=== PATIENT | female | born 1990 | race Caucasian/White ===

== ENCOUNTER 2021-04-02 20:08 | Emergency (ER) | payer OTHER ==
--- NOTE | 2021-04-02 21:24 | EDM.PDOC ---
ED HPI GENERAL MEDICAL PROBLEM - General Chief Complaint: ENT Problem Stated Complaint: TOOTH ACHE Time Seen by Provider: 04/02/21 21:15 Source of Information: Reports: Patient, Family History Limitations: Reports: No Limitations - History of Present Illness INITIAL COMMENTS - FREE TEXT/NARRATIVE: Dental pain to right lower jaw radiating to chin for 4 days. She has recently moved to the area. She states the pain is severe enough that she cannot sleep. She denies fever chills, nausea, vomiting, change in bowel/bladder, injury to the jaw, or trauma. She has tried use of tylenol ad oragel without any improvement. She denies difficulty eating, drinking or swallowing. Right Lower Jaw Pain Score (Numeric/FACES): 7 - Related Data Allergies Allergy/AdvReac Type Severity Reaction Status Date / Time No Known Allergies Allergy Verified 04/02/21 20:46 Home Meds: Home Meds NK [No Known Home Meds] 04/02/21 [History] Past Medical History Hematologic History: Reports: Other (See Below) Other Hematologic History: can get blood clots easily - Infectious Disease History Infectious Disease History: Reports: Chicken Pox - Past Surgical History HEENT Surgical History: Reports: Oral Surgery Social & Family History - Tobacco Use Tobacco Use Status *Q: Never Tobacco User - Caffeine Use Caffeine Use: Reports: Coffee, Energy Drinks, Soda, Tea - Recreational Drug Use Recreational Drug Use: No ED ROS ENT - Review of Systems Review Of Systems: See Below Constitutional: Reports: No Symptoms HEENT: Reports: Dental Pain (radiating to chin). Denies: Ear Pain, Nose Pain, Sinus Problem, Throat Pain, Throat Swelling, Vertigo Respiratory: Reports: No Symptoms Cardiovascular: Reports: No Symptoms Endocrine: Reports: No Symptoms GI/Abdominal: Reports: No Symptoms : Reports: No Symptoms Musculoskeletal: Reports: No Symptoms Skin: Reports: No Symptoms Neurological: Reports: No Symptoms Psychiatric: Reports: No Symptoms Hematologic/Lymphatic: Reports: No Symptoms Immunologic: Reports: No Symptoms ED EXAM, ENT - Physical Exam Exam: See Below Exam Limited By: No Limitations General Appearance: Alert, WD/WN, Mild Distress Eye Exam: Bilateral Eye: Normal Inspection, PERRL Ears: Normal External Exam, Normal Canal, Hearing Grossly Normal, Normal TMs. No: Auricular Ecchymosis, Mastoid Swelling, Mastoid Tenderness, TM Erythema Nose: Normal Inspection, Normal Mucousa, No Blood Mouth/Throat: Normal Lips, Dental Pain, Dental Tenderness, Gum Swelling, Other (multiple chipped teeth. Multiple dental caries. Firmness and edema to sublingual gland area with tenderness. Edema/erythema to left lower gum. ). No: Drooling, Dry Mucous Membrane, Lip Swelling, Lip Ulcers, Muffled Voice, Peritonsillar Mass, Throat Pain, Throat Swelling, Tongue Swelling, Tonsillar Erythema, Tonsillar Exudates, Trismus, Uvular Deviation, Uvular Edema Head: Atraumatic, Normocephalic Neck: Non-Tender, Full Range of Motion, Lymphadenopathy (R). No: Limited Range of Motion, Lymphadenopathy (L) Respiratory/Chest: No Respiratory Distress, Lungs Clear, Normal Breath Sounds, No Accessory Muscle Use, Chest Non-Tender. No: Crackles, Rales, Rhonchi, Wheezing, Stridor, Retractions, Splinting Cardiovascular: Normal Peripheral Pulses, Regular Rate, Rhythm, No Edema, No Gallop, No Murmur, No Rub Back: Normal Inspection, Full Range of Motion. No: CVA Tenderness (R), CVA Tenderness (L) Extremities: Normal Inspection, Normal Range of Motion, Non-Tender, No Pedal Edema, Normal Capillary Refill Neurological: Alert, Oriented, CN II-XII Intact, Normal Cognition, Normal Gait, Normal Reflexes, No Motor/Sensory Deficits Psychiatric: Normal Affect, Normal Mood Skin: Warm, Dry, Intact, Normal Color, No Rash Course - Vital Signs Last Recorded V/S: Last Vital Signs Temp 36.6 C 04/02/21 20:43 Pulse 69 04/02/21 20:43 Resp 16 04/02/21 20:43 BP 132/85 04/02/21 20:43 Pulse Ox 100 04/02/21 20:43 - Orders/Labs/Meds Labs: Laboratory Tests 04/02/21 04/02/21 Range/Units 22:30 22:30 WBC 9.1 (4.5-11.0) K/uL RBC 5.53 H (3.30-5.50) M/uL Hgb 13.8 (12.0-15.0) g/dL Hct 42.7 (36.0-48.0) % MCV 77 L (80-98) fL MCH 25 L (27-31) pg MCHC 32 (32-36) % Plt Count 340 (150-400) K/uL Neut % (Auto) 72.7 H (36-66) % Lymph % (Auto) 18.5 L (24-44) % [place] % (Auto) 7.7 H (2-6) % Eos % (Auto) 0.7 L (2-4) % Baso % (Auto) 0.4 (0-1) % Sodium 135 L (140-148) mmol/L Potassium 3.7 (3.6-5.2) mmol/L Chloride 99 L (100-108) mmol/L Carbon Dioxide 29 (21-32) mmol/L Anion Gap 10.7 (5.0-14.0) mmol/L BUN 11 (7-18) mg/dL Creatinine 0.7 (0.6-1.0) mg/dL Est Cr Clr Drug Dosing 101.48 mL/min Estimated GFR (MDRD) > 60 (>60) Glucose 113 H (74-106) mg/dL Calcium 9.1 (8.5-10.1) mg/dL No acute findings noted with lab. Patient provided education on dental care, pain and sialadenitis. She will follow up with dental. Meds: Medications Discontinued Medications Generic Name Dose Route Start Last Admin Trade Name Olafq PRN Reason Stop Dose Admin Hydrocodone Bitart/Acetaminophen 1 tab 04/02/21 23:08 04/02/21 23:40 Acetaminophen/Hydrocodone 325-5 Mg Tab PO 04/02/21 23:09 1 tab ONETIME ONE Administration Ketorolac Tromethamine 30 mg 04/02/21 21:29 04/02/21 21:56 Ketorolac 30 Mg/Ml Sdv IM 04/02/21 21:30 30 mg ONETIME ONE Administration Metronidazole 500 mg 04/02/21 22:23 04/02/21 22:34 Metronidazole 250 Mg Tab PO 04/02/21 22:24 500 mg ONETIME ONE Administration Penicillin V Potassium 500 mg 04/02/21 22:16 04/02/21 22:34 Penicillin V Potassium 250 Mg Tab PO 04/02/21 22:17 500 mg ONETIME ONE Administration Departure - Departure Time of Disposition: 23:08 Disposition: Home, Self-Care 01 Condition: Good Clinical Impression: Dental infection, Sialadenitis - Discharge Information Referrals: PCP,None [Primary Care Provider] - Forms: ED Department Discharge Additional Instructions: You have been evaluated and treated for a dental infection. Take penicillin VK and metronidazole as directed for infection. Follow up with dentist per referral on 04/05/2021. Drink plenty of fluids to stay hydrated. May take Ibuprofen 800mg by mouth three times a day for pain. Tylenol as needed and hydrocodone for uncontrolled pain as needed. Return for any worsening, issues or concerns. ENT referral placed for concern of sialadenitis. Sepsis Event Note (ED) - Evaluation Sepsis Screening Result: No Definite Risk - Focused Exam Vital Signs: Vital Signs Temp Pulse Resp BP Pulse Ox 04/02/21 20:43 36.6 C 69 16 132/85 100 - Assessment/Plan Assessment:: Dental infection, Sialadenitis Plan: Patient evaluated and treated for a dental infection. Take penicillin VK and metronidazole as directed for infection. Follow up with dentist per referral on 04/05/2021. Drink plenty of fluids to stay hydrated. May take Ibuprofen 800mg by mouth three times a day for pain. Tylenol as needed and hydrocodone for uncontrolled pain as needed. Return for any worsening, issues or concerns. ENT referral placed for concern of sialadenitis.
[2021-04-02] MEDS ORDERED: Ketorolac 30 MG/ML SDV IM ONE (21:29)
[2021-04-02] MEDS ORDERED: Penicillin V Potassium 250 MG Tab PO ONE (22:16)
[2021-04-02] MEDS ORDERED: metroNIDAZOLE 250 MG Tab PO ONE (22:23)
[2021-04-02] MEDS ORDERED: Acetaminophen/HYDROcodone 325-5 MG Tab PO ONE (23:08)
== END 2021-04-02 23:42 | disposition home or self-care (01) ==
LOC: JP.ED 20:08
DX: K04.7 Periapical abscess without sinus (principal); K11.20 Sialoadenitis, unspecified
CPT/HCPCS: 36415; 80048; 85025; 96372; 99283; A9270; J1885

== ENCOUNTER 2021-10-20 11:12 | Emergency (ER) | payer MEDICAID ==
[2021-10-20] MEDS ORDERED: Cyclobenzaprine 10 MG Tab PO ONE (11:42)
[2021-10-20] MEDS ORDERED: Ketorolac 30 MG/ML SDV IM ONE (11:42)
== END 2021-10-20 12:44 | disposition home or self-care (01) ==
LOC: JP.ED 11:12
DX: S16.1XXA Strain of muscle, fascia and tendon at neck level, initial encounter (principal); Z91.030 Bee allergy status; Z72.0 Tobacco use
CPT/HCPCS: 96372; 99283; A9270-GY; J1885

== ENCOUNTER 2021-12-31 06:13 | Emergency (ER) | payer MEDICAID | END 2021-12-31 06:53 | disposition home or self-care (01) | LOC: JP.ED 06:13 | DX: U07.1 COVID-19 (principal); J45.909 Unspecified asthma, uncomplicated; Z91.030 Bee allergy status; Z79.899 Other long term (current) drug therapy | CPT/HCPCS: 99281; 99283; U0002 ==

== ENCOUNTER 2022-06-26 07:57 | Emergency (ER) | payer MEDICAID ==
[2022-06-26 08:57] LABS: CORONAVIRUS COVID-19 NAA NEGATIVE (NEGATIVE)
[2022-06-26] MEDS ORDERED: methylPREDNISolone Sodium Succinate 125 MG/2 ML SDV IM ONE (09:07)
== END 2022-06-26 09:32 | disposition home or self-care (01) ==
LOC: JP.ED 07:57
DX: J98.8 Other specified respiratory disorders (principal); J45.909 Unspecified asthma, uncomplicated; Z91.030 Bee allergy status; Z79.899 Other long term (current) drug therapy; Z20.822 Contact with and (suspected) exposure to COVID-19
CPT/HCPCS: 0241U; 96372; 99283; J2930

== ENCOUNTER 2022-11-22 16:14 | Emergency (ER) | payer MEDICAID ==
[2022-11-22] MEDS ORDERED: Bupivacaine 0.5%/EPINEPHrine 1:200,000 1.8 ML Cartridge INJECT ONE (17:29)
== END 2022-11-22 17:58 | disposition home or self-care (01) ==
LOC: JP.ED 16:14
DX: K04.7 Periapical abscess without sinus (principal); Z91.030 Bee allergy status; Z79.899 Other long term (current) drug therapy
CPT/HCPCS: 64400; 99282; J3490

== ENCOUNTER 2023-01-30 20:15 | Emergency (ER) | payer MEDICAID | END 2023-01-30 22:13 | disposition left against medical advice (07) | LOC: JP.ED 20:15 | DX: Z53.21 Procedure and treatment not carried out due to patient leaving prior to being seen by health care provider (principal) ==

== ENCOUNTER 2024-08-16 17:19 | Emergency (ER) | payer SELFPAY ==
[2024-08-16 18:35] LABS: BASOPHILS ABSOLUTE AUTO 0.12 K/uL (0.00-0.10); BASOPHILS PERCENT AUTO 1.3 % (0.1-1.3); EOSINOPHILS ABSOLUTE AUTO 0.27 K/uL (0.00-0.40); HEMATOCRIT 39.9 % (34.3-46.0); HEMOGLOBIN 13.1 g/dL (11.2-15.5); IMMATURE GRAN PERCENT AUTO 0.2 % (0.0-0.7); LYMPHOCYTES ABSOLUTE AUTO 2.44 K/uL (0.8-3.3); LYMPHOCYTES PERCENT AUTO 26.9 % (11.4-47.7); MEAN CORPUSCULAR HGB CONC 32.8 g/dL (31.6-35.5); MEAN CORPUSCULAR VOLUME 76.3 fL (81.4-99.0); MONOCYTES ABSOLUTE AUTO 0.57 K/uL (0.20-0.90); MONOCYTES PERCENT AUTO 6.3 % (3.3-12.6); NEUTROPHILS ABSOLUTE AUTO 5.66 K/uL (1.0-7.6); NEUTROPHILS PERCENT AUTO 62.3 % (40.0-78.1); PLATELET COUNT,PLT 280 K/uL (130-375); RED BLOOD CELL COUNT 5.23 M/uL (3.77-5.24); WHITE BLOOD CELL COUNT,WBC 9.1 K/uL (3.2-11.0)
[2024-08-16 18:36] LABS: IMMATURE GRAN ABSOLUTE AUTO 0.02 K/uL (0.00-0.23)
[2024-08-16] MEDS: Sodium Chloride 0.9% 1,000 ML IV SCH (18:40)
[2024-08-16] MEDS: Sodium Chloride 0.9% 10 ML Syringe FLUSH PRN (18:41)
[2024-08-16] MEDS: fentaNYL 100 MCG/2 ML SDV IVPUSH ONE (18:41)
[2024-08-16 18:59] LABS: A/G RATIO 1.1 (1.2-2.2); ALANINE AMINOTRANSFERASE,ALT 20 U/L (12-78); ALBUMIN 3.9 g/dL (3.4-5.0); ALKALINE PHOSPHATASE 86 U/L (46-116); ANION GAP 15.4 mmol/L (5.0-14.0); ASPARTATE AMNIOTRANSFERASE,AST 15 U/L (15-37); BILIRUBIN TOTAL 0.7 mg/dL (0.2-1.0); BLOOD UREA NITROGEN,BUN 7 mg/dL (7-18); CALCIUM 8.8 mg/dL (8.5-10.1); CARBON DIOXIDE,CO2 25 mmol/L (21-32); CHLORIDE,CL 104 mmol/L (100-108); CREATININE 0.8 mg/dL (0.6-1.0); EST CRCL DRUG DOSING (CG) 86.37 mL/min; ESTIMATED GFR 100 mL/min (>60); GLUCOSE RANDOM 81 mg/dL (74-106); POTASSIUM,K 3.4 mmol/L (3.6-5.2); PROTEIN TOTAL,TP 7.6 g/dL (6.4-8.2); SODIUM,NA 141 mmol/L (140-148); TROPONIN I HIGH SENSITIVITY < 4.0 pg/mL (<=60.3)
[2024-08-16] MEDS: Cyclobenzaprine 10 MG Tab PO ONE (19:27)
[2024-08-16] MEDS: Ketorolac 30 MG/ML SDV IVPUSH ONE (19:28)
== END 2024-08-16 20:20 | disposition home or self-care (01) ==
LOC: JP.ED 17:19
DX: R07.89 Other chest pain (principal); Z86.16 Personal history of COVID-19; Z79.51 Long term (current) use of inhaled steroids; Z79.899 Other long term (current) drug therapy; Z91.030 Bee allergy status
CPT/HCPCS: 36415; 71046; 80053; 83605; 84484; 85025; 96374; 96375; 99285; A9270; J1885; J3010; J7030

== ENCOUNTER 2024-08-27 06:31 | Emergency (ER) | payer MEDICAID ==
[2024-08-27] MEDS ORDERED: methylPREDNISolone Sodium Succinate 125 MG/2 ML SDV IM ONE (07:05)
[2024-08-27] MEDS ORDERED: Ketorolac 30 MG/ML SDV IM ONE (07:05)
[2024-08-27 07:22] LABS: BASOPHILS ABSOLUTE AUTO 0.12 K/uL (0.00-0.10); BASOPHILS PERCENT AUTO 1.4 % (0.1-1.3); EOSINOPHILS ABSOLUTE AUTO 0.27 K/uL (0.00-0.40); EOSINOPHILS PERCENT AUTO 3.2 % (0.0-5.4); HEMATOCRIT 44.5 % (34.3-46.0); HEMOGLOBIN 14.4 g/dL (11.2-15.5); IMMATURE GRAN PERCENT AUTO 0.2 % (0.0-0.7); LYMPHOCYTES ABSOLUTE AUTO 1.57 K/uL (0.8-3.3); LYMPHOCYTES PERCENT AUTO 18.5 % (11.4-47.7); MEAN CORPUSCULAR HEMOGLOBIN 24.9 pg (31.6-35.5); MEAN CORPUSCULAR HGB CONC 32.4 g/dL (31.6-35.5); MONOCYTES ABSOLUTE AUTO 0.48 K/uL (0.20-0.90); MONOCYTES PERCENT AUTO 5.7 % (3.3-12.6); NEUTROPHILS ABSOLUTE AUTO 6.02 K/uL (1.0-7.6); PLATELET COUNT,PLT 301 K/uL (130-375); RED BLOOD CELL COUNT 5.78 M/uL (3.77-5.24); WHITE BLOOD CELL COUNT,WBC 8.5 K/uL (3.2-11.0)
[2024-08-27 07:24] LABS: IMMATURE GRAN ABSOLUTE AUTO 0.02 K/uL (0.00-0.23)
[2024-08-27] MEDS: Cyclobenzaprine 10 MG Tab PO ONE (07:24)
[2024-08-27] MEDS: Ketorolac 15 MG/ML SDV IVPUSH ONE (07:25)
[2024-08-27 07:45] LABS: A/G RATIO 1.1 (1.2-2.2); ALANINE AMINOTRANSFERASE,ALT 18 U/L (12-78); ALBUMIN 4.3 g/dL (3.4-5.0); ALKALINE PHOSPHATASE 89 U/L (46-116); ASPARTATE AMNIOTRANSFERASE,AST 16 U/L (15-37); BILIRUBIN TOTAL 1.1 mg/dL (0.2-1.0); BLOOD UREA NITROGEN,BUN 7 mg/dL (7-18); CALCIUM 9.1 mg/dL (8.5-10.1); CARBON DIOXIDE,CO2 19 mmol/L (21-32); CHLORIDE,CL 103 mmol/L (100-108); CREATININE 0.9 mg/dL (0.6-1.0); EST CRCL DRUG DOSING (CG) 76.77 mL/min; ESTIMATED GFR 87 mL/min (>60); GLUCOSE RANDOM 111 mg/dL (74-106); POTASSIUM,K 3.2 mmol/L (3.6-5.2); PROTEIN TOTAL,TP 8.2 g/dL (6.4-8.2); SODIUM,NA 140 mmol/L (140-148)
[2024-08-27 07:48] LABS: ANION GAP 21.2 mmol/L (5.0-14.0)
== END 2024-08-27 09:03 | disposition home or self-care (01) ==
LOC: JP.ED 06:31
DX: R07.89 Other chest pain (principal); R07.2 Precordial pain; J45.909 Unspecified asthma, uncomplicated; Z79.51 Long term (current) use of inhaled steroids; Z79.899 Other long term (current) drug therapy; Z91.030 Bee allergy status
CPT/HCPCS: 36415; 71046; 80053; 84703; 85025; 96374; 96375; 99285; A9270; J1885; J3360; 99283

== ENCOUNTER 2024-11-03 08:38 | Emergency (ER) | payer SELFPAY ==
[2024-11-03] MEDS: Sodium Chloride 0.9% 1,000 ML IV ONE ×2 (09:29→10:40)
[2024-11-03] MEDS: Ondansetron 4 MG/2 ML SDV IVPUSH ONE (09:29)
[2024-11-03 09:30] LABS: BASOPHILS ABSOLUTE AUTO 0.08 K/uL (0.00-0.10); BASOPHILS PERCENT AUTO 0.4 % (0.1-1.3); EOSINOPHILS ABSOLUTE AUTO 0.04 K/uL (0.00-0.40); EOSINOPHILS PERCENT AUTO 0.2 % (0.0-5.4); HEMATOCRIT 49.6 % (34.3-46.0); HEMOGLOBIN 16.2 g/dL (11.2-15.5); IMMATURE GRAN ABSOLUTE AUTO 0.06 K/uL (0.00-0.23); IMMATURE GRAN PERCENT AUTO 0.3 % (0.0-0.7); LYMPHOCYTES ABSOLUTE AUTO 0.63 K/uL (0.8-3.3); MEAN CORPUSCULAR HEMOGLOBIN 25.4 pg (31.6-35.5); MEAN CORPUSCULAR HGB CONC 32.7 g/dL (31.6-35.5); MEAN CORPUSCULAR VOLUME 77.9 fL (81.4-99.0); MONOCYTES ABSOLUTE AUTO 0.47 K/uL (0.20-0.90); MONOCYTES PERCENT AUTO 2.2 % (3.3-12.6); NEUTROPHILS ABSOLUTE AUTO 19.75 K/uL (1.0-7.6); NEUTROPHILS PERCENT AUTO 93.9 % (40.0-78.1); PLATELET COUNT,PLT 361 K/uL (130-375); RED BLOOD CELL COUNT 6.37 M/uL (3.77-5.24)
[2024-11-03 09:50] LABS: A/G RATIO 1.1 (1.2-2.2); ALANINE AMINOTRANSFERASE,ALT 27 U/L (12-78); ALBUMIN 4.7 g/dL (3.4-5.0); ALKALINE PHOSPHATASE 104 U/L (46-116); ASPARTATE AMNIOTRANSFERASE,AST 16 U/L (15-37); BILIRUBIN TOTAL 2.1 mg/dL (0.2-1.0); BLOOD UREA NITROGEN,BUN 13 mg/dL (7-18); CALCIUM 10.4 mg/dL (8.5-10.1); CARBON DIOXIDE,CO2 16 mmol/L (21-32); CHLORIDE,CL 102 mmol/L (100-108); CREATININE 0.9 mg/dL (0.6-1.0); EST CRCL DRUG DOSING (CG) 70.32 mL/min; ESTIMATED GFR 87 mL/min (>60); GLUCOSE RANDOM 161 mg/dL (74-106); POTASSIUM,K 3.8 mmol/L (3.6-5.2); PROTEIN TOTAL,TP 8.9 g/dL (6.4-8.2); SODIUM,NA 137 mmol/L (140-148)
[2024-11-03 09:51] LABS: ANION GAP 22.8 mmol/L (5.0-14.0)
[2024-11-03 10:24] LABS: LACTIC ACID 2.1 mmol/L (0.4-2.0)
[2024-11-03 11:45] LABS: BASOPHILS ABSOLUTE AUTO 0.03 K/uL (0.00-0.10); BASOPHILS PERCENT AUTO 0.2 % (0.1-1.3); EOSINOPHILS ABSOLUTE AUTO 0.01 K/uL (0.00-0.40); EOSINOPHILS PERCENT AUTO 0.1 % (0.0-5.4); HEMATOCRIT 42.4 % (34.3-46.0); HEMOGLOBIN 13.5 g/dL (11.2-15.5); IMMATURE GRAN ABSOLUTE AUTO 0.06 K/uL (0.00-0.23); IMMATURE GRAN PERCENT AUTO 0.4 % (0.0-0.7); LYMPHOCYTES ABSOLUTE AUTO 0.29 K/uL (0.8-3.3); LYMPHOCYTES PERCENT AUTO 1.7 % (11.4-47.7); MEAN CORPUSCULAR HEMOGLOBIN 25.5 pg (31.6-35.5); MEAN CORPUSCULAR HGB CONC 31.8 g/dL (31.6-35.5); MEAN CORPUSCULAR VOLUME 80.2 fL (81.4-99.0); MONOCYTES ABSOLUTE AUTO 0.45 K/uL (0.20-0.90); MONOCYTES PERCENT AUTO 2.7 % (3.3-12.6); NEUTROPHILS ABSOLUTE AUTO 16.08 K/uL (1.0-7.6); NEUTROPHILS PERCENT AUTO 94.9 % (40.0-78.1); PLATELET COUNT,PLT 268 K/uL (130-375); RED BLOOD CELL COUNT 5.29 M/uL (3.77-5.24); WHITE BLOOD CELL COUNT,WBC 16.9 K/uL (3.2-11.0)
[2024-11-03 12:05] LABS: A/G RATIO 1.1 (1.2-2.2); ALANINE AMINOTRANSFERASE,ALT 23 U/L (12-78); ALBUMIN 3.6 g/dL (3.4-5.0); ALKALINE PHOSPHATASE 79 U/L (46-116); ANION GAP 14.1 mmol/L (5.0-14.0); ASPARTATE AMNIOTRANSFERASE,AST 11 U/L (15-37); BILIRUBIN TOTAL 1.5 mg/dL (0.2-1.0); BLOOD UREA NITROGEN,BUN 11 mg/dL (7-18); CALCIUM 8.1 mg/dL (8.5-10.1); CARBON DIOXIDE,CO2 22 mmol/L (21-32); CHLORIDE,CL 109 mmol/L (100-108); CREATININE 0.9 mg/dL (0.6-1.0); EST CRCL DRUG DOSING (CG) 70.32 mL/min; ESTIMATED GFR 87 mL/min (>60); GLUCOSE RANDOM 99 mg/dL (74-106); POTASSIUM,K 4.1 mmol/L (3.6-5.2); PROTEIN TOTAL,TP 6.9 g/dL (6.4-8.2); SODIUM,NA 141 mmol/L (140-148)
== END 2024-11-03 12:45 | disposition home or self-care (01) ==
LOC: JP.ED 08:38
DX: K52.9 Noninfective gastroenteritis and colitis, unspecified (principal); J45.909 Unspecified asthma, uncomplicated; F17.210 Nicotine dependence, cigarettes, uncomplicated; Z86.16 Personal history of COVID-19; Z88.5 Allergy status to narcotic agent; Z91.030 Bee allergy status; Z79.51 Long term (current) use of inhaled steroids; Z79.899 Other long term (current) drug therapy
CPT/HCPCS: 36415; 80053; 83605; 85025; 96361; 96374; 99284; J2405; J7030